=== PATIENT | male | born 1980 | race Caucasian/White ===

== ENCOUNTER 2016-08-11 21:32 | Emergency (ER) | payer OTHER ==
--- NOTE | 2016-08-11 22:26 | ED NURSING NOTES ---
Clinical Report - Nurses [facility] [address] [place] [address] 08/11/2016 21:33 Patient: ENRIQUE ROBERTS TRIAGE Triage time 21:44. Acuity: LEVEL 4. Chief Complaint: LEFT LOWER EXTREMITY PAIN. --21:48 TonyaB, R.N. 21:44 08/11/16. BP: 120/80. HR: 86. RR: 16. O2 saturation: 99%. Temp: 97.8 F. Pain level now: 08/11. --21:48 TonyaB, R.N. Weight: 81.6 kg. Height/Length: 71 inches. BMI: 25.1. --21:45 TonyaB, R.N. Medications None. --21:45 TonyaB, R.N. Allergies No Known Drug Allergy. --21:45 TonyaB, R.N. History Arrived by private vehicle. Historian: patient. Accompanied by family. ( pt was cleaning out under brush and cut his knee with a machete). Injury occurred. Treatment DIRECTOR MEDICAL SCIENCE: None. PAST MEDICAL HX: Tetanus status: up-to-date. SOCIAL HX: Never smoker. No alcohol use or drug use. No infectious disease exposure. SELF HARM ASSESSMENT: A self harm assessment was performed. The patient answered "no" to the question "Have you recently felt down, depressed, or hopeless?", "Have you noticed less interest or pleasure in doing things?", "Do you have thoughts of harming or killing yourself?", "Are you here because you tried to hurt yourself?", "Have you ever tried to hurt yourself before today?", "Have you recently had thoughts about harming or killing others?" and "Do you have any dangerous items in your possession?". FALL RISK ASSESSMENT: Fall risk assessment completed. No fall risk identified. NUTRITIONAL RISK ASSESSMENT: The nutritional risk assessment revealed no deficiencies. FUNCTIONAL ASSESSMENT: Functional assessment: no impairments noted. LEARNING NEEDS ASSESSMENT: The learning needs assessment revealed no barriers. ABUSE ASSESSMENT: Abuse assessment: The patient was asked "Do you feel safe in your home?". SKIN INTEGRITY ASSESSMENT: Skin integrity risk assessment completed. No skin integrity risk identified. --21:48 Rory Ann PROBLEMS: Pericarditis. --21:46 Ninfa Ann. ADDITIONAL SURGERIES: Hernia Repair. --21:46 Rory Ann Interventions ID band on patient. To treatment room. --21:48 Rory Ann PHYSICAL ASSESSMENT Ambulatory to room. GENERAL / NEURO / PSYCH: Oriented X 4. Alert. Appears in no acute distress. EXTREMITIES: Extremity pulses are within normal limits. Extremities exhibit normal ROM. Neuro-vascular status intact to the extremity. No lower extremity edema. Normal gait. Left knee: subcutaneous laceration with bleeding. SKIN: Skin intact. Skin is warm and dry. --21:48 Rory Ann NURSING PROGRESS NOTES Patient gowned. Patient identifiers checked. Call light placed in reach. Side rails up. Bed placed in lowest position. Brakes of bed on. --21:49 Rory Ann Wound cleansed with sterile saline and Hibiclens. --21:58 Rory Ann Applied dressing consisting of 4x4 gauze, following the application of antibiotic ointment (bacitracin). Secured with tape. --22:35 Rory Ann DISPOSITION / DISCHARGE Departure time: 22:35. Condition at departure: improved. No learning barriers present. Discharge instructions provided and reviewed with the patient. Patient verbalized understanding. Written instructions provided in Armenian. No warning instructions, medication instructions, treatment instructions, referrals given to the patient or diet instructions. No activity restrictions, note given, follow up contact number given or stop smoking instructions. The patient was discharged by the physician. He was discharged home and accompanied by spouse. He left the Emergency Department ambulatory and via private vehicle. Spouse driving. FALL RISK ASSESSMENT: Fall risk assessment completed. No fall risk identified. --22:36 Rory Ann 22:35 08/11/16. BP: 121/76. HR: 72. RR: 16. O2 saturation: 99%. Temp: deferred. Pain level now: 05/14. --22:36 Rory Ann Locked/Released at 08/11/2016 22:36 by Rory Ann
--- NOTE | 2016-08-11 22:26 | ED CLINICAL REPORT ---
Clinical Report - Physicians/Mid Levels [facility] [address] [place] [address] 08/11/2016 21:33 Patient: ENRIQUE ROBERTS Time Seen: 21:44; initial patient contact. Arrived- By private vehicle. Historian- patient. HISTORY OF PRESENT ILLNESS Chief Complaint: Injury to left leg. The injury happened just prior to arrival. Occurred at home. The patient sustained a laceration from a sharp edge (Machete). Patient is experiencing mild pain. Patient denies injury to the head or neck. REVIEW OF SYSTEMS The patient sustained a laceration. No swelling, tingling, numbness or suspected foreign body. He has no pain on weight bearing. All systems otherwise negative, except as recorded above. PAST HISTORY ( Pericarditis. ADDITIONAL SURGERIES: Hernia Repair). Tetanus immunization status is up-to-date. SOCIAL HISTORY Never smoker. No alcohol use or drug use. ADDITIONAL NOTES The nursing notes have been reviewed. PHYSICAL EXAM Vital Signs: 08/11/2016 21:44 BP: 120/80. HR: 86. RR: 16. O2 saturation: 99%. Temp: 97.8 F. Pain level now: 5/10. Have been reviewed as normal. Appearance: Alert. Oriented X3. No acute distress. Skin: Skin warm and dry. Extremities: Left leg: mild tenderness and subcutaneous 4.0 cm laceration located in the mid leg. Neurovascular intact distally. No erythema, swelling or foreign body. No limitation of weight bearing. Lower extremity exam otherwise negative. Extremities otherwise negative. Gait: Normal gait. Neuro, Vascular and Tendons: Vascular status intact. Sensation intact. Motor intact. Tendon function intact. Neuro: Oriented X 3. No motor deficit. No sensory deficit. PROGRESS AND PROCEDURES Laceration Repair: Time: 22:25. Location: left leg. Per protocol, time-out completed immediately before the procedure. Length: 4 cm. Complexity: simple (sutured). Wound depth/shape- subcutaneous and linear. Wound is clean. Distal neuro/vascular/tendon status normal. Local anesthesia provided using 2% lidocaine with epi. Prepped with Hibiclens. Wound explored, irrigated and examined to the base in bloodless field extensively with normal saline. Closure of skin: 4-0 nylon (4 sutures). Post-procedure: he is stable and there are no complications. Bleeding is controlled and neuro-vascular status is intact distal to the wound. Dressing applied. Tetanus immunization up-to-date. Estimated blood loss: 3 mL. Disposition: Discharged home in good and improved condition. Condition: good. CLINICAL IMPRESSION Single deep laceration to the left lower leg.Treatment of laceration not delayed. No infection or foreign body present. INSTRUCTIONS Protect wound and keep wound area clean. Change dressing twice daily. You may wash wounds briefly, then dry. Apply bacitracin twice daily. Sutures should be removed in seven days. Your Current Medications: CONTINUE TAKING THE FOLLOWING MEDICATIONS: None*. Follow-up: Follow up with your doctor in seven days for suture removal. Call for an appointment. Screening today revealed the patient's blood pressure to be in the pre-hypertensive range. The patient should follow up with a primary care provider for blood pressure management. (Electronically signed by Cayetano Gage Dr. 08/11/2016 22:28)
--- NOTE | 2016-08-11 22:26 | ED NURSING NOTES ---
Clinical Report - Nurses [place] [facility] [address] [place] [address] 08/11/2016 21:33 Patient: ENRIQUE ROBERTS TRIAGE Triage time 21:44. Acuity: LEVEL 4. Chief Complaint: LEFT LOWER EXTREMITY PAIN. --21:48 TonyaB, R.N. 21:44 08/11/16. BP: 120/80. HR: 86. RR: 16. O2 saturation: 99%. Temp: 97.8 F. Pain level now: 08/11. --21:48 TonyaB, R.N. Weight: 81.6 kg. Height/Length: 71 inches. BMI: 25.1. --21:45 TonyaB, R.N. Medications None. --21:45 TonyaB, R.N. Allergies No Known Drug Allergy. --21:45 TonyaB, R.N. History Arrived by private vehicle. Historian: patient. Accompanied by family. ( pt was cleaning out under brush and cut his knee with a machete). Injury occurred. Treatment PRODUCT SUPPORT MANAGER: None. PAST MEDICAL HX: Tetanus status: up-to-date. SOCIAL HX: Never smoker. No alcohol use or drug use. No infectious disease exposure. SELF HARM ASSESSMENT: A self harm assessment was performed. The patient answered "no" to the question "Have you recently felt down, depressed, or hopeless?", "Have you noticed less interest or pleasure in doing things?", "Do you have thoughts of harming or killing yourself?", "Are you here because you tried to hurt yourself?", "Have you ever tried to hurt yourself before today?", "Have you recently had thoughts about harming or killing others?" and "Do you have any dangerous items in your possession?". FALL RISK ASSESSMENT: Fall risk assessment completed. No fall risk identified. NUTRITIONAL RISK ASSESSMENT: The nutritional risk assessment revealed no deficiencies. FUNCTIONAL ASSESSMENT: Functional assessment: no impairments noted. LEARNING NEEDS ASSESSMENT: The learning needs assessment revealed no barriers. ABUSE ASSESSMENT: Abuse assessment: The patient was asked "Do you feel safe in your home?". SKIN INTEGRITY ASSESSMENT: Skin integrity risk assessment completed. No skin integrity risk identified. --21:48 Rory Ann PROBLEMS: Pericarditis. --21:46 Ninfa Ann. ADDITIONAL SURGERIES: Hernia Repair. --21:46 Rory Ann Interventions ID band on patient. To treatment room. --21:48 Rory Ann PHYSICAL ASSESSMENT Ambulatory to room. GENERAL / NEURO / PSYCH: Oriented X 4. Alert. Appears in no acute distress. EXTREMITIES: Extremity pulses are within normal limits. Extremities exhibit normal ROM. Neuro-vascular status intact to the extremity. No lower extremity edema. Normal gait. Left knee: subcutaneous laceration with bleeding. SKIN: Skin intact. Skin is warm and dry. --21:48 Rory Ann NURSING PROGRESS NOTES Patient gowned. Patient identifiers checked. Call light placed in reach. Side rails up. Bed placed in lowest position. Brakes of bed on. --21:49 Rory Ann Wound cleansed with sterile saline and Hibiclens. --21:58 Rory Ann Applied dressing consisting of 4x4 gauze, following the application of antibiotic ointment (bacitracin). Secured with tape. --22:35 Rory Ann DISPOSITION / DISCHARGE Departure time: 22:35. Condition at departure: improved. No learning barriers present. Discharge instructions provided and reviewed with the patient. Patient verbalized understanding. Written instructions provided in Welsh. No warning instructions, medication instructions, treatment instructions, referrals given to the patient or diet instructions. No activity restrictions, note given, follow up contact number given or stop smoking instructions. The patient was discharged by the physician. He was discharged home and accompanied by spouse. He left the Emergency Department ambulatory and via private vehicle. Spouse driving. FALL RISK ASSESSMENT: Fall risk assessment completed. No fall risk identified. --22:36 Rory Ann 22:35 08/11/16. BP: 121/76. HR: 72. RR: 16. O2 saturation: 99%. Temp: deferred. Pain level now: 05/14. --22:36 Rory Ann Locked/Released at 08/11/2016 22:36 by Rory Ann
--- NOTE | 2016-08-11 22:26 | ED CLINICAL REPORT ---
Clinical Report - Physicians/Mid Levels [facility] [address] [place] [address] 08/11/2016 21:33 Patient: ENRIQUE ROBERTS Time Seen: 21:44; initial patient contact. Arrived- By private vehicle. Historian- patient. HISTORY OF PRESENT ILLNESS Chief Complaint: Injury to left leg. The injury happened just prior to arrival. Occurred at home. The patient sustained a laceration from a sharp edge (Machete). Patient is experiencing mild pain. Patient denies injury to the head or neck. REVIEW OF SYSTEMS The patient sustained a laceration. No swelling, tingling, numbness or suspected foreign body. He has no pain on weight bearing. All systems otherwise negative, except as recorded above. PAST HISTORY ( Pericarditis. ADDITIONAL SURGERIES: Hernia Repair). Tetanus immunization status is up-to-date. SOCIAL HISTORY Never smoker. No alcohol use or drug use. ADDITIONAL NOTES The nursing notes have been reviewed. PHYSICAL EXAM Vital Signs: 08/11/2016 21:44 BP: 120/80. HR: 86. RR: 16. O2 saturation: 99%. Temp: 97.8 F. Pain level now: 5/10. Have been reviewed as normal. Appearance: Alert. Oriented X3. No acute distress. Skin: Skin warm and dry. Extremities: Left leg: mild tenderness and subcutaneous 4.0 cm laceration located in the mid leg. Neurovascular intact distally. No erythema, swelling or foreign body. No limitation of weight bearing. Lower extremity exam otherwise negative. Extremities otherwise negative. Gait: Normal gait. Neuro, Vascular and Tendons: Vascular status intact. Sensation intact. Motor intact. Tendon function intact. Neuro: Oriented X 3. No motor deficit. No sensory deficit. PROGRESS AND PROCEDURES Laceration Repair: Time: 22:25. Location: left leg. Per protocol, time-out completed immediately before the procedure. Length: 4 cm. Complexity: simple (sutured). Wound depth/shape- subcutaneous and linear. Wound is clean. Distal neuro/vascular/tendon status normal. Local anesthesia provided using 2% lidocaine with epi. Prepped with Hibiclens. Wound explored, irrigated and examined to the base in bloodless field extensively with normal saline. Closure of skin: 4-0 nylon (4 sutures). Post-procedure: he is stable and there are no complications. Bleeding is controlled and neuro-vascular status is intact distal to the wound. Dressing applied. Tetanus immunization up-to-date. Estimated blood loss: 3 mL. Disposition: Discharged home in good and improved condition. Condition: good. CLINICAL IMPRESSION Single deep laceration to the left lower leg.Treatment of laceration not delayed. No infection or foreign body present. INSTRUCTIONS Protect wound and keep wound area clean. Change dressing twice daily. You may wash wounds briefly, then dry. Apply bacitracin twice daily. Sutures should be removed in seven days. Your Current Medications: CONTINUE TAKING THE FOLLOWING MEDICATIONS: None*. Follow-up: Follow up with your doctor in seven days for suture removal. Call for an appointment. Screening today revealed the patient's blood pressure to be in the pre-hypertensive range. The patient should follow up with a primary care provider for blood pressure management. (Electronically signed by Cayetano Gage Dr. 08/11/2016 22:28)
--- NOTE | 2016-08-11 22:36 | ED MAR SUMMARY ---
..... Medication Administration Record [facility] [address] [place] [address] Patient: ENRIQUE ROBERTS Visit ID: [id number] 35y, M Weight: 81.6 kg Height/Length: 71 in BMI: 25.1 ALLERGIES: No Known Drug Allergy
--- NOTE | 2016-08-11 22:36 | ED MED RECONCILIATION SUMMARY ---
Patient: ENRIQUE ROBERTS Medication Reconciliation Report [facility] VisitID: [id number] [address] [place] [place] [address] 35y, M Registration Date/Time: 08/11/2016 Weight: 81.6 kg Height/Length: 71 in. BMI: 25.1 ALLERGIES: No Known Drug Allergy The patient's Home Medications are listed below: NONE. The source(s) of the original Home Medication information: Not obtained. The following Medications were given to the patient in the Emergency Department: None. The following Medications were prescribed to the patient: None.
--- NOTE | 2016-08-11 22:36 | ED MAR SUMMARY ---
..... Medication Administration Record [facility] [address] [place] [address] Patient: ENRIQUE ORBERTS Visit ID: [id number] 35y, M Weight: 81.6 kg Height/Length: 71 in BMI: 25.1 ALLERGIES: No Known Drug Allergy
--- NOTE | 2016-08-11 22:36 | ED DISCHARGE INSTRUCTIONS ---
Patient: ENRIQUE ROBERTS General Instructions [facility] VisitID: [id number] [place] [address] 35y, M Registration Date/Time: 08/11/2016 Single deep laceration to the left lower leg.Treatment of laceration not delayed. No infection or foreign body present. INSTRUCTIONS Protect wound and keep wound area clean. Change dressing twice daily. You may wash wounds briefly, then dry. Apply bacitracin twice daily. Sutures should be removed in seven days. Your Current Medications: CONTINUE TAKING THE FOLLOWING MEDICATIONS: None*. Follow-up: Follow up with your doctor in seven days for suture removal. Call for an appointment. Screening today revealed the patient's blood pressure to be in the pre-hypertensive range. The patient should follow up with a primary care provider for blood pressure management. ADDITIONAL INFORMATION Laceration (All Closures) Alaceration is a cut through the skin. This will usually require stitches (sutures) or austin if it is deep. Minor cuts may be treated with a surgical tape closure orskin glue. Home care The following guidelines will help you care for your laceration at home: Extremity, face, or trunk wounds Keep the wound clean and dry. If a bandage was applied and it becomes wet or dirty, replace it. Otherwise, leave it in place for the first 24 hours. If stitches or austin were used, clean the wound daily. After removing the bandage, wash the area with soap and water. Use a wet cotton swab to loosen and remove any blood or crust that forms. The doctor may prescribe an antibiotic cream or ointment to prevent infection. Do not stop taking this medication until you have finished the prescribed course or the doctor tells you to stop. The doctor may also prescribe medications for pain. Follow the doctors instructions for taking these medications. You may remove the bandage to shower as usual after the first 24 hours, but do not soak the area in water (no swimming) until the stitches or austin are removed. If surgical tape was used, keep the area clean and dry. If it becomes wet, blot it dry with a towel. If skin glue was used, do not scratch, rub, or pick at the adhesive film. Do not place tape directly over the film. Do not apply liquid, ointment, or creams to the wound while the film is in place. Do not clean the wound with peroxide and do not apply ointments. Avoid activities that cause heavy sweating until the film has fallen off. Protect the wound from prolonged exposure to sunlight or tanning lamps. You may shower as usual but do not soak the wound in water (no baths or swimming). The film will fall off by itself in 510 days. Scalp wounds During the first two days, you may carefully rinse your hair in the shower to remove blood, glass or dirt particles. After two days, you may shower and shampoo your hair normally. Do not soak your scalp in the tub or go swimming until the stitches or austin have been removed. Talk with your doctor before applying any antibiotic ointment to the wound. Mouth wounds Eat soft foods to reduce pain. If the cut is inside of your mouth, clean by rinsing after each meal and at bedtime with a mixture of equal parts water and hydrogen peroxide (do not swallow!). Or, you can use a cotton swab to directly apply hydrogen peroxide onto the cut. Mouth wounds can be painful when eating. You may use an [id number] local numbing solution for pain relief. If this is not available, you may use any numbing solution for teething babies. You may apply this directly to the sores with a cotton-tip swab or with your finger. Follow-up care Follow up with your health care provider. Most skin wounds heal within ten days. Mouth and facial wounds heal within five days. However, even with proper treatment, a wound infection may sometimes occur. Therefore, you should check the wound daily for signs of infection listed below. Stitches should be removed from the face within five days; stitches and austin should be removed from other parts of the body within 714 days. If dissolving stitches were used in the mouth, these will fall out or dissolve without the need for removal. If tape closures were used, remove them yourself if they have not fallen off after 7 days. Ifskin glue was used, the film will fall off by itself in 510 days. When to seek medical care Get prompt medical attention if any of these occur: Bleeding not controlled by direct pressure Signs of infection, including increasing pain in the wound, increasing wound redness or swelling, or pus coming from the wound Fever of 100.4F (38C) or higher, or as directed by your health care provider Stitches or austin come apart or fall out or surgical tape falls off before 7 days Wound edges re-open Bandage Change If the bandage becomes wet or dirty, replace it. Otherwise, leave it in place for the first 24 hours. Then once a day: After removing the bandage, wash the area with soap and water. Use a wet cotton swab to loosen and remove any blood or crust that forms on the wound. After cleaning, apply a thin layer of antibiotic ointment or cream. Reapply the bandage. You may shower as usual after the first 24 hours. If the bandage is on an arm or leg, cover it with a plastic bag rubber banded at both ends before showering. No tub baths or swimming until the bandage is removed and the wound healed (at least 7 days). You have been given the following additional information: Laceration, All Dressing Change (Electronically signed by Cayetano Gage Dr. 08/11/2016 22:28)
--- NOTE | 2016-08-11 22:36 | ED MED RECONCILIATION SUMMARY ---
Patient: ENRIQUE ROBERTS Medication Reconciliation Report [facility] VisitID: [id number] [address] [place] [place] [address] 35y, M Registration Date/Time: 08/11/2016 Weight: 81.6 kg Height/Length: 71 in. BMI: 25.1 ALLERGIES: No Known Drug Allergy The patient's Home Medications are listed below: NONE. The source(s) of the original Home Medication information: Not obtained. The following Medications were given to the patient in the Emergency Department: None. The following Medications were prescribed to the patient: None.
== END 2016-08-11 22:30 | disposition home or self-care (01) ==
LOC: ED SRH 21:32
DX: S81.812A Laceration without foreign body, left lower leg, initial encounter (principal); W26.0XXA Contact with knife, initial encounter; Y93.89 Activity, other specified; Y99.9 Unspecified external cause status; Y92.009 Unspecified place in unspecified non-institutional (private) residence as the place of occurrence of the external cause